=== PATIENT | male | born 1940 | race Caucasian/White ===

== ENCOUNTER 2018-01-16 06:03 | Observation (INO) | payer MEDICARE, OTHER ==
[2018-01-16] MEDS ORDERED: NS 0.9% 1000 ML* 1,000 ML IV ONE (06:08)
[2018-01-16 07:28] LABS: ABS Basophils 0.1 10^3/ul (0-0.2); ABS Eosinophils 0.2 10^3/ul (0-0.6); ABS Monocytes 0.4 10^3/ul (0-0.8); ABS Neutrophils 4.2 10^3/ul (1.5-7.7); ABS Nucleated RBC 0 10^3/ul; Eosinophil % 3.6 % (0-6); Hematocrit 41 % (42-52); Hemoglobin 14.8 g/dl (14.0-18.0); Lymphocyte % 17.6 % (25-47); Mean Corpuscular HGB Conc 36 g/dl (31-36); Mean Corpuscular Hemoglobin 32 pg (27-31); Mean Corpuscular Volume 89 fL (80-94); Mean Platelet Volume 9.6 um3 (7.4-10.4); Nucleated Red Blood Cells % 0.3; Platelet Count 134 10^3/ul (150-450); Red Blood Count 4.58 10^6/ul (4.00-5.40); Red Cell Distribution Width 15 % (10.5-15); White Blood Count 5.9 10^3/ul (3.5-10.8)
[2018-01-16 07:31] LABS: INR 0.98 (0.77-1.02)
[2018-01-16 08:02] LABS: EGFR Non-African American 46.2 (>60)
--- NOTE | 2018-01-16 08:18 | RAD ---
HISTORY: weak, dizziness COMPARISONS mildly: August 14, 2014 VIEWS: 1: frontal portable view of the chest at 6:25 AM FINDINGS: LINES AND TUBES: None. CARDIOMEDIASTINAL SILHOUETTE: The cardiac silhouette is mildly enlarged. The cardiomediastinal silhouette is otherwise normal for portable technique. PLEURA: The costophrenic angles are sharp. No pleural abnormalities are noted. LUNG PARENCHYMA: The lungs are clear. ABDOMEN: The upper abdomen is clear. There is no subphrenic gas. BONES AND SOFT TISSUES: The patient is status post median sternotomy. IMPRESSION: MILD CARDIOMEGALY.
[2018-01-16 08:57] LABS: Urine Appearance Clear; Urine Blood Negative (Negative); Urine Color Yellow; Urine Ketones Negative (Negative); Urine Protein Negative (Negative); Urine Specific Gravity 1.016 (1.010-1.030); Urine Urobilinogen Negative (Negative)
[2018-01-16] MEDS ORDERED: Magnesium Sulfate 2 GM IV* 2 GM/50 ML BAG IVPB ONE (10:49)
[2018-01-16] MEDS ORDERED: Acetaminophen TAB* 325 MG PO PRN (11:11)
[2018-01-16] MEDS ORDERED: Ondansetron 40 MG VIAL* 2 MG/ML 20 ML VIAL IV PRN (11:11)
--- NOTE | 2018-01-16 11:21 | RAD ---
HISTORY: WEAKNESS, ataxia, dizziness COMPARISONS: None TECHNIQUE: The following sequences were obtained of the head: Sagittal T1-weighted images, axial T2-weighted images, axial FLAIR images, axial susceptibility weighted images, axial T1-weighted images. Additionally, axial diffusion-weighted images were obtained with calculated apparent diffusion coefficients. FINDINGS: HEMORRHAGE/INFARCT: There is no hemorrhage or acute infarct. MASSES/SHIFT: There is no mass or shift. EXTRA-AXIAL SPACES/MENINGES: There are no extra-axial fluid collections. SULCI AND VENTRICLES: The sulci and ventricles are normal in size and position for the patient's stated age. CEREBRUM: There are no focal parenchymal abnormalities. BRAINSTEM: There are no focal parenchymal abnormalities. CEREBELLUM: There are no focal parenchymal abnormalities. The cerebellar tonsils are normal in size and position. SELLA: The sella is normal. PINEAL: The pineal region is clear. CP ANGLE/TEMPORAL BONES: The labyrinthine structures are grossly normal. VESSELS: Normal flow-voids are noted within the visualized vertebral vasculature. DIFFUSION ABNORMALITIES: There are no diffusion abnormalities. PARANASAL SINUSES/MASTOIDS: There is mucosal thickening of ethmoid air cells and frontal sinuses. ORBITS: The orbits are unremarkable. BONES AND SOFT TISSUE: No bone or soft tissue abnormalities are noted. OTHER: None IMPRESSION: UNREMARKABLE MRI OF THE BRAIN. NO RESTRICTED DIFFUSION TO SUGGEST ACUTE INFARCT.
--- NOTE | 2018-01-16 11:23 | RAD ---
HISTORY: ataxia COMPARISONS: None TECHNIQUE: The following sequences were obtained of the neck after localizing images: Stacked axial 2-D [id number] MR angiography of the neck; 3-D axial [id number] MR angiography of the carotid bifurcations. Multiple 3-D maximum intensity projection reconstructions are submitted for review. FINDINGS: The study is limited by patient motion artifact. AORTA: The aortic arch is not well visualized secondary to technique and motion artifact. There is no obvious ostial or proximal stenosis of the cephalic great vessels. RIGHT VERTEBRAL ARTERY: The right vertebral artery is patent and without stenosis. LEFT VERTEBRAL ARTERY: There is minimal flow-related enhancement of the left vertebral artery. DOMINANCE: The left vertebral artery is dominant. RIGHT COMMON CAROTID ARTERY: The right common carotid artery is patent. RIGHT INTERNAL CAROTID ARTERY: Evaluation is limited by motion artifact. There is no appreciable right internal carotid artery stenosis by NASCET criteria. LEFT COMMON CAROTID ARTERY: The left common carotid artery is patent. LEFT INTERNAL CAROTID ARTERY: Evaluation is limited by motion artifact. There is no appreciable left internal carotid artery stenosis by NASCET criteria. ADDITIONAL FINDINGS: The visualized intracranial circulation is unremarkable. IMPRESSION: 1. LIMITED STUDY. 2. WITHIN THE LIMITATIONS OF THE STUDY, THERE IS NO INTERNAL CAROTID ARTERY STENOSIS BY NASCET CRITERIA. 3. THE FLOW RELATED ENHANCEMENT OF THE RIGHT VERTEBRAL ARTERY IS DIMINUTIVE. THIS MAY BE AN ANATOMIC VARIATION, THOUGH RIGHT VERTEBRAL ARTERY STENOSIS, INCLUDING FROM DISSECTION, IS WITHIN THE DIFFERENTIAL. CPT II Codes: 3100F
--- NOTE | 2018-01-16 12:54 | ED ---
Brigid Courtney Tenzin, scribed for Ted Arenas MD on 01/16/18 at 0733 . Dizziness - HPI Summary HPI Summary: Pt is a 77 years old male presenting to the ED complaining of vertigo "off balance" with diaphoresis at 5:00 this morning. He reported that his symptoms lasted about 10 minutes today. Pt notes that he experienced 2 episodes of similar symptoms two days in a row in the past week where the symptoms lasted 2 to 3 minutes. He said last episode, "it started with elevated BP" and the pt notes that he visited the [facility]. He reports that he experience similar episode 4 days ago also while he was in [place]. The symptoms includes diaphoresis, nausea, headache, and vertigo," feeling off balance" and feeling "sick to his stomach". Pt also notes that he has associated symptoms of back pain and leg pain after walking pass 176 yards. No stress test was done. Pt denies any blurred vision or slurred speech. He didn't take any medication today. Pt reports that he had a quadruple bypass in 2004 and was discharged a year after the surgery. He notes that he didn't take any precautions since his discharge after that surgery in 2004. - History Of Current Complaint Chief Complaint: EDDizziness Stated Complaint: WEAKNESS/DIZZINESS Time Seen by Provider: 01/16/18 07:17 Hx Obtained From: Patient Timing: Hours - 5:00 AM this morning. Character: Dizzy - off balance. Associated Signs And Symptoms: Positive: Nausea, Diaphoresis, Other: - headache , vertigo. DENIES: blurred vision or slurred speech. - Allergies/Home Medications Allergies/Adverse Reactions: Allergies Allergy/AdvReac Type Severity Reaction Status Date / Time No Known Allergies Allergy Verified 06/30/13 01:00 Home Medications: Home Medications amLODIPine TAB* [Norvasc 5 mg TAB*] 5 mg PO DAILY 01/16/18 [History Confirmed ] cloNIDine TAB* [Catapres 0.1 MG TAB*] 0.2 mg PO TID 01/16/18 [History Confirmed 01/16/18] hydrALAZINE TAB* [Apresoline TAB*] 50 mg PO TID 01/16/18 [History Confirmed ] PMH/Surg Hx/FS Hx/Imm Hx Cardiovascular History: Reports: Hx Coronary Artery Disease Denies: Hx Myocardial Infarction Sensory History: Denies: Hx Deafness Opthamlomology History: Denies: Hx Legally Blind Infectious Disease History: No Infectious Disease History: Denies: Traveled Outside the [place] in Last 30 Days - Family History Family History: Pt denies any relevant family history. - Social History Alcohol Use: None Substance Use Type: Reports: None Smoking Status (MU): Never Smoked Tobacco Review of Systems Positive: Skin Diaphoresis Negative: Blurred Vision Positive: Nausea Positive: Other - back pain and leg pain after walking pass 176 yards Neurological: Other - Vertigo. Positive: Headache. Negative: Slurred Speech All Other Systems Reviewed And Are Negative: Yes Physical Exam - Summary Physical Exam Summary: Appearance: The patient is well-nourished in no acute distress and in no acute pain. Skin: The skin is warm and dry and skin color reflects adequate perfusion. HEENT: The head is normocephalic and atraumatic. The pupils are equal and reactive. The conjunctivae are clear and without drainage. Nares are patent and without drainage. Mouth reveals moist mucous membranes and the throat is without erythema and exudate. The external ears are intact. The ear canals are patent and without drainage. The tympanic membranes are intact. Neck: the neck is supple with full range of motion and non-tender. There are no carotid bruits. There is no neck vein distension. Respiratory: Chest is non-tender. Lungs are clear to auscultation and breath sounds are symmetrical and equal. Cardiovascular: Heart is bradycardia. There is no murmur or rub auscultated. There is no peripheral edema and pulses are symmetrical and equal. Abdomen: The abdomen is soft and non-tender. There are normal bowel sounds heard in all four quadrants and there is no organomegaly palpated. Musculoskeletal: There is no back tenderness noted. Extremities are non-tender with full range of motion. There is good capillary refill. There is no peripheral edema or calf tenderness elicited. Neurological: Patient has slight horizontal nystagmus to the right. The patient has symmetrical motor strength in all four extremities. Cranial nerves are grossly intact. Deep tendon reflexes are symmetrical and equal in all four extremities. Psychiatric: The patient has an appropriate affect and does not exhibit any anxiety or depression. Triage Information Reviewed: Yes Vital Signs On Initial Exam: Initial Vitals Pulse Resp BP Pulse Ox 56 16 158/56 94 01/16/18 06:06 01/16/18 06:06 01/16/18 06:06 01/16/18 06:06 Vital Signs Reviewed: Yes Diagnostics - Vital Signs Vital Signs Temp Pulse Resp BP Pulse Ox 01/16/18 06:16 60 19 94 01/16/18 06:07 97.6 F 59 20 158/56 95 01/16/18 06:06 56 16 158/56 94 - Laboratory Lab Results: Lab Results 01/16/18 01/16/18 01/16/18 Range/Units 07:15 07:15 07:15 WBC 5.9 (3.5-10.8) 10^3/ul RBC 4.58 (4.00-5.40) 10^6/ul Hgb 14.8 (14.0-18.0) g/dl Hct 41 L (42-52) % MCV 89 (80-94) fL MCH 32 H (27-31) pg MCHC 36 (31-36) g/dl RDW 15 (10.5-15) % Plt Count 134 L (150-450) 10^3/ul MPV 9.6 (7.4-10.4) um3 Neut % (Auto) 71.0 (38-83) % Lymph % (Auto) 17.6 L (25-47) % [place] % (Auto) 6.6 (0-7) % Eos % (Auto) 3.6 (0-6) % Baso % (Auto) 1.2 (0-2) % Absolute Neuts (auto) 4.2 (1.5-7.7) 10^3/ul Absolute Lymphs (auto) 1.0 (1.0-4.8) 10^3/ul Absolute Monos (auto) 0.4 (0-0.8) 10^3/ul Absolute Eos (auto) 0.2 (0-0.6) 10^3/ul Absolute Basos (auto) 0.1 (0-0.2) 10^3/ul Absolute Nucleated RBC 0 10^3/ul Nucleated RBC % 0.3 INR (Anticoag Therapy) 0.98 (0.77-1.02) Sodium 138 (135-145) mmol/L Potassium 3.8 (3.5-5.0) mmol/L Chloride 104 (101-111) mmol/L Carbon Dioxide 24 (22-32) mmol/L Anion Gap 10 (2-11) mmol/L BUN 25 H (6-24) mg/dL Creatinine 1.48 H (0.67-1.17) mg/dL Est GFR ( Amer) 59.4 (>60) Est GFR (Non-Af Amer) 46.2 (>60) BUN/Creatinine Ratio 16.9 (8-20) Glucose 145 H (70-100) mg/dL Hemoglobin A1c (4.0-5.6) % Lactic Acid (0.5-2.0) mmol/L Calcium 9.4 (8.6-10.3) mg/dL Magnesium 1.7 L (1.9-2.7) mg/dL Total Bilirubin 2.10 H (0.2-1.0) mg/dL AST 29 (13-39) U/L ALT 27 (7-52) U/L Alkaline Phosphatase 46 (34-104) U/L Troponin I 0.00 (<0.04) ng/mL C-Reactive Protein 3.14 (< 5.00) mg/L B-Natriuretic Peptide ( - 100) pg/mL Total Protein 7.0 (6.4-8.9) g/dL Albumin 4.2 (3.2-5.2) g/dL Globulin 2.8 (2-4) g/dL Albumin/Globulin Ratio 1.5 (1-3) TSH 5.36 (0.34-5.60) mcIU/mL Urine Color Urine Appearance Urine pH (5-9) Ur Specific [place] (1.010-1.030) Urine Protein (Negative) Urine Ketones (Negative) Urine Blood (Negative) Urine Nitrate (Negative) Urine Bilirubin (Negative) Urine Urobilinogen (Negative) Ur Leukocyte Esterase (Negative) Urine Glucose (Negative) 01/16/18 01/16/18 01/16/18 Range/Units 07:15 07:15 07:15 WBC (3.5-10.8) 10^3/ul RBC (4.00-5.40) 10^6/ul Hgb (14.0-18.0) g/dl Hct (42-52) % MCV (80-94) fL MCH (27-31) pg MCHC (31-36) g/dl RDW (10.5-15) % Plt Count (150-450) 10^3/ul MPV (7.4-10.4) um3 Neut % (Auto) (38-83) % Lymph % (Auto) (25-47) % [place] % (Auto) (0-7) % Eos % (Auto) (0-6) % Baso % (Auto) (0-2) % Absolute Neuts (auto) (1.5-7.7) 10^3/ul Absolute Lymphs (auto) (1.0-4.8) 10^3/ul Absolute Monos (auto) (0-0.8) 10^3/ul Absolute Eos (auto) (0-0.6) 10^3/ul Absolute Basos (auto) (0-0.2) 10^3/ul Absolute Nucleated RBC 10^3/ul Nucleated RBC % INR (Anticoag Therapy) (0.77-1.02) Sodium (135-145) mmol/L Potassium (3.5-5.0) mmol/L Chloride (101-111) mmol/L Carbon Dioxide (22-32) mmol/L Anion Gap (2-11) mmol/L BUN (6-24) mg/dL Creatinine (0.67-1.17) mg/dL Est GFR ( Amer) (>60) Est GFR (Non-Af Amer) (>60) BUN/Creatinine Ratio (8-20) Glucose (70-100) mg/dL Hemoglobin A1c 5.1 (4.0-5.6) % Lactic Acid 0.9 (0.5-2.0) mmol/L Calcium (8.6-10.3) mg/dL Magnesium (1.9-2.7) mg/dL Total Bilirubin (0.2-1.0) mg/dL AST (13-39) U/L ALT (7-52) U/L Alkaline Phosphatase (34-104) U/L Troponin I (<0.04) ng/mL C-Reactive Protein (< 5.00) mg/L B-Natriuretic Peptide 76 ( - 100) pg/mL Total Protein (6.4-8.9) g/dL Albumin (3.2-5.2) g/dL Globulin (2-4) g/dL Albumin/Globulin Ratio (1-3) TSH (0.34-5.60) mcIU/mL Urine Color Urine Appearance Urine pH (5-9) Ur Specific [place] (1.010-1.030) Urine Protein (Negative) Urine Ketones (Negative) Urine Blood (Negative) Urine Nitrate (Negative) Urine Bilirubin (Negative) Urine Urobilinogen (Negative) Ur Leukocyte Esterase (Negative) Urine Glucose (Negative) 01/16/18 Range/Units 08:10 WBC (3.5-10.8) 10^3/ul RBC (4.00-5.40) 10^6/ul Hgb (14.0-18.0) g/dl Hct (42-52) % MCV (80-94) fL MCH (27-31) pg MCHC (31-36) g/dl RDW (10.5-15) % Plt Count (150-450) 10^3/ul MPV (7.4-10.4) um3 Neut % (Auto) (38-83) % Lymph % (Auto) (25-47) % [place] % (Auto) (0-7) % Eos % (Auto) (0-6) % Baso % (Auto) (0-2) % Absolute Neuts (auto) (1.5-7.7) 10^3/ul Absolute Lymphs (auto) (1.0-4.8) 10^3/ul Absolute Monos (auto) (0-0.8) 10^3/ul Absolute Eos (auto) (0-0.6) 10^3/ul Absolute Basos (auto) (0-0.2) 10^3/ul Absolute Nucleated RBC 10^3/ul Nucleated RBC % INR (Anticoag Therapy) (0.77-1.02) Sodium (135-145) mmol/L Potassium (3.5-5.0) mmol/L Chloride (101-111) mmol/L Carbon Dioxide (22-32) mmol/L Anion Gap (2-11) mmol/L BUN (6-24) mg/dL Creatinine (0.67-1.17) mg/dL Est GFR ( Amer) (>60) Est GFR (Non-Af Amer) (>60) BUN/Creatinine Ratio (8-20) Glucose (70-100) mg/dL Hemoglobin A1c (4.0-5.6) % Lactic Acid (0.5-2.0) mmol/L Calcium (8.6-10.3) mg/dL Magnesium (1.9-2.7) mg/dL Total Bilirubin (0.2-1.0) mg/dL AST (13-39) U/L ALT (7-52) U/L Alkaline Phosphatase (34-104) U/L Troponin I (<0.04) ng/mL C-Reactive Protein (< 5.00) mg/L B-Natriuretic Peptide ( - 100) pg/mL Total Protein (6.4-8.9) g/dL Albumin (3.2-5.2) g/dL Globulin (2-4) g/dL Albumin/Globulin Ratio (1-3) TSH (0.34-5.60) mcIU/mL Urine Color Yellow Urine Appearance Clear Urine pH 5.0 (5-9) Ur Specific [place] 1.016 (1.010-1.030) Urine Protein Negative (Negative) Urine Ketones Negative (Negative) Urine Blood Negative (Negative) Urine Nitrate Negative (Negative) Urine Bilirubin Negative (Negative) Urine Urobilinogen Negative (Negative) Ur Leukocyte Esterase Negative (Negative) Urine Glucose Negative (Negative) Result Diagrams: 01/16/18 07:15 01/16/18 07:15 Lab Statement: Any lab studies that have been ordered have been reviewed, and results considered in the medical decision making process. - Radiology CHEST X RAY Radiology Interpretation Completed By: Radiologist - Impression: MILD CARDIOMEGALY. Dr. Arenas reviewed the report. - EKG 6:12 Cardiac Rate: Bradycardia - 55BPM EKG Interpretation: 1st degree heart block. Dizzy Course/Dx - Course Course Of Treatment: Mr. Tello presents to the emergency department after a 10 minute episode of being off balance, diaphoretic and nauseated. He has had 3 episodes in the last 5 days. First episode was and he was admitted to our hospital in [facility] with a concern for hypertension. He received labs for rule out KS and a CTA of his chest which was negative. His blood pressure was slightly high on admission and according to the patient he was started on several medications that were meant to be temporary. During the 10 minute episode this morning he took his pressure and it was normal around 130s over 80s. I have significant concern that this could involve a posterior event either from partial dissection or recurrent TIA's. Dr. Toribio was contacted and agreed that he needs a workup and admission to the hospital. Dr. Lara was contacted and agrees to the admission he is pending MRI/MRA while he is here in the emergency department to try to hurry things up. He remains in stable condition. - Diagnoses Provider Diagnoses: TIA (transient ischemic attack) - Critical Care Time Critical Care Time: 30-74 min Discharge - Sign-Out/Discharge Documenting (check all that apply): Discharge/Admit/Transfer - Admit - Discharge Plan Condition: Fair Disposition: ADMITTED TO [facility] - Billing Disposition and Condition Condition: FAIR Disposition: Admitted to [facility] The documentation as recorded by the Brigid lujan Tenzin accurately reflects the service I personally performed and the decisions made by me, Ted Arenas MD.
[2018-01-16] MEDS ORDERED: cloNIDine TAB* 0.1 MG PO SCH (14:00)
[2018-01-16] MEDS: cloNIDine TAB* 0.1 MG PO SCH ×2 (14:17→21:04)
[2018-01-16] MEDS: hydrALAZINE TAB* 25 MG PO SCH ×2 (14:17→21:04)
[2018-01-16] MEDS: Heparin VIAL(*) 5000 UNITS/ML VIAL (FIVE THOUSAND) SUBCUT SCH ×2 (14:18→21:05)
--- NOTE | 2018-01-16 16:22 | ECHO ---
Patient: JEFFY ABERNATHY [facility] Rec#: [id number] : 1940 Date: 01/16/2018 Age: 77y Height: 177.8 cm / 70.0 in Weight: 89.36 kg / 196.9 lbs Sex: M BSA: 2.07 Room#: 433 Admit Date#: 01/16/2018 Type: Inpatient Referring: Jeffy Roger Reading: Marko Sesay MD Arch Support Maker: Polina Watson RDCS CC: Sarah Sosa MD Transthoracic Echocardiogram Indication: TIA BP: 158/56 HR: 56 Rhythm: Bradycardia Findings History: Vertigo,s/p CABGx4 2004, HTN. Technical Comments: The study quality is good. Completed at 1550. Left Ventricle: The left ventricular chamber size is normal. Global left ventricular wall motion and contractility are within normal limits. There is normal left ventricular systolic function. The estimated ejection fraction is 55-60%. Normal left ventricular diastolic filling is observed. Left Atrium: The left atrium is mildly dilated. Right Ventricle: The right ventricular cavity size is normal. The right ventricular global systolic function is normal. Right Atrium: The right atrium is mildly dilated. There is no patent foramen ovale visualized. There is no evidence of patent foramen ovale shunting. A patent foramen ovale is not demonstrated with color Doppler and agitated contrast. Aortic Valve: The aortic valve is trileaflet. There is no evidence of aortic valve thickening. There is trace to mild aortic regurgitation. There is no evidence of aortic stenosis. Mitral Valve: The mitral valve leaflets are mildly thickened. There is mild to moderate mitral regurgitation. There is no evidence of mitral stenosis. Tricuspid Valve: The tricuspid valve leaflets are normal. There is trace to mild tricuspid regurgitation. There is evidence of moderate pulmonary hypertension. There is no tricuspid stenosis. Pulmonic Valve: The pulmonic valve appears normal. There is no evidence of pulmonic regurgitation. There is no pulmonic stenosis. Pericardium: A pericardial fat pad is visualized. Aorta: The ascending aorta is not well visualized. There is no dilatation of the aortic arch. There is no dilation of the aortic root. Pulmonary Artery: The main pulmonary artery appears normal. Venous: The venous system is not well visualized. Conclusions Global left ventricular wall motion and contractility are within normal limits. There is normal left ventricular systolic function. The estimated ejection fraction is 55-60%. There is no patent foramen ovale visualized. A patent foramen ovale is not demonstrated with color Doppler and agitated contrast. There is trace to mild aortic regurgitation. There is mild to moderate mitral regurgitation. There is trace to mild tricuspid regurgitation. There is evidence of moderate pulmonary hypertension. The ascending aorta is not well visualized. Measurements Name Value Normal Range RVIDd (AP) 2D 2.9 cm (0.9 - 2.6) RVDdMajor (2D) 3.5 cm (2.2 - 4.4) RAd ISD 4CH 5.4 cm (3.4 - 4.9) RA (A4C)W 3.9 cm (2.9 - 4.6) IVSd (2D) 0.8 cm (0.6 - 1) LVPWd (2D) 1 cm (0.6 - 1) LVIDd (2D) 4.7 cm (3.6 - 5.4) LVIDs (2D) 3.2 cm - LV FS (2D) 32 % (25 - 45) Aortic Annulus 2.2 cm (1.4 - 2.6) Ao root diameter (2D) 3.4 cm (2.1 - 3.5) Aortic arch 2.2 cm (1.8 - 3.4) Descending Ao 0.5 cm - LA dimension (AP) 2D 4.3 cm (2.3 - 3.8) LAd ISD 4CH 6 cm (2.9 - 5.3) LA ISD 4CH W 4.4 cm (2.5 - 4.5) Name Value Normal Range LA ESV SP 4CH (A/L) 59 ml - LA ESV SP 2CH (A/L) 79 ml - LA ESV BP (A/L) 69 ml - LA ESV BP (A/L) index 33.23 ml/m2 - LA ESV SP 4CH (MOD) 55 ml - LA ESV SP 2CH (MOD) 73 ml - Name Value Normal Range MV E-wave Vmax 1.2 m/sec - MV deceleration time 258 msec - MV A-wave Vmax 0.9 m/sec - MV E:A ratio 1.3 ratio - LV septal e' Vmax 0.07 m/sec - LV lateral e' Vmax 0.06 m/sec - LV E:e' septal ratio 17.14 ratio - LV E:e' lateral ratio 20 ratio - Name Value Normal Range AV Vmax 1.7 m/sec - AV VTI 39.89 cm - AV peak gradient 11.16 mmHg - AV mean gradient 5.31 mmHg - LVOT Vmax 1.1 m/sec - LVOT VTI 27.4 cm - LVOT peak gradient 4.85 mmHg - LVOT mean gradient 2 mmHg - AR PHT 580 msec - AR peak gradient 29 mmHg - Name Value Normal Range MR Vmax 5.3 m/sec - MR VTI 205.7 cm - Name Value Normal Range TR Vmax 3 m/sec - TR peak gradient 36 mmHg - RAP 8 mmHg - RVSP 44 mmHg - Name Value Normal Range PV Vmax 0.8 m/sec - PV peak gradient 2.35 mmHg -
--- NOTE | 2018-01-16 16:51 | HP ---
CC: Dr. Sarah Sosa; Dr. Ml Flores * ADMISSION HISTORY AND PHYSICAL: DATE OF ADMISSION: 01/16/18 PRIMARY CARE PROVIDER: Dr. Sarah Sosa. MY ATTENDING WHILE IN THE HOSPITAL: Dr. Claudia Castrejon.* (DICTATED BY GRECIA XIAO) CONSULTING NEUROLOGIST: Dr. Ml Flores. CHIEF COMPLAINT: Dizziness x3. HISTORY OF PRESENT ILLNESS: Mr. Tello is a 77-year-old male with a past medical history significant for coronary artery disease, peripheral arterial disease, amaurosis fugax, recently diagnosed hypertension, who initially presented to the urgent care in [place], [place], with a sudden onset of dizziness and what was then described as chest pain, but he states it was just a muscle spasm in his PEC, which lasted about 40 seconds. The patient's blood pressure was slightly elevated at urgent care, but was significantly elevated with systolic up to 220 in the emergency department at [place], [place]. He was admitted to the hospital; started on clonidine, hydralazine, and amlodipine. The patient did not have any issues with dizziness during the hospitalization. The patient had a CTA of his chest; negative troponins and essentially negative cardiac workup. The patient was discharged from the hospital after 3 days with no arrhythmias noted on telemetry monitoring. The patient then between when he was discharged from [facility] and got back to [place] , he had another episode of relatively sudden onset of dizziness, which he describes as disequilibrium. While he was in the hospital at [facility], they had issues with his diastolic blood pressures dropping too low due to overtreatment but with persistently elevated systolic blood pressures. The patient states it is worse when he is standing, describes it as a disequilibrium like he is going to fall, he is not feeling like he is going to fall in one particular direction. Again, he denies presyncope. No palpitations , current chest pain, or shortness of breath. The patient has nausea and vomiting associated with these episodes. The patient has no other recent illnesses. The patient had no recent changes in medications except for the addition of the 3 antihypertensive medications. The patient denies dai vertigo, changes in his vision. The patient has a history of amaurosis fugax from 2004, which lasted approximately 10 to 15 seconds. The patient has no numbness, tingling, weakness, or other changes in his vision. The patient has had no word-finding difficulty. The patient was previously started on statin therapy and did not tolerate it due to general poor feeling and not interested in restarting on statin therapy. The patient has not had issues with high blood pressure in the past. Due to concern for transient ischemic attack versus hypotension causing the patient's dizziness, we were asked to evaluate for admission. The patient states that he has claudication in his leg with approximately 500 feet of walking; this is relatively predictable and this has not recently progressed. The patient has never had an evaluation for peripheral arterial disease. PAST MEDICAL HISTORY: Coronary artery disease, status post CABG x4 in 2004; TRD , amaurosis fugax, osteoarthritis, newly diagnosed hypertension, peripheral arterial disease. PAST SURGICAL HISTORY: CABG in 2004. MEDICATIONS: 1. Amlodipine 5 mg p.o. daily. 2. Clonidine 0.2 mg p.o. t.i.d. 3. Hydralazine 50 mg p.o. t.i.d. 4. Omeprazole 20 mg p.o. daily. 5. Aspirin 81 mg p.o. daily. ALLERGIES: No known drug allergies. FAMILY HISTORY: The patient's mother of lung cancer. The patient's father of prostate cancer. The patient has a brother with diabetes and arthritis. The patient has 2 children, who are healthy. SOCIAL HISTORY: The patient has a [id number] history of smoking. The patient still occasionally smokes cigars. The patient drinks approximately 12 beers a week. The patient denies illicit drug use. 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 The patient is not , but has a long-term partner, Polina Mckeon, who he would like to be his health care proxy. The patient has 2 children. REVIEW OF SYSTEMS: A 14-point review of systems was reviewed and is negative except as above. PHYSICAL EXAMINATION GENERAL: The patient is a 77-year-old male who appears stated age and is sitting comfortably in bed, in no acute distress. VITAL SIGNS: At the time of evaluation, temperature is 97.6, pulse rate 59, respiratory rate 20, oxygen saturation 95% on room air, blood pressure 156/56. HEENT: Head normocephalic, atraumatic. Sclerae anicteric. No conjunctival injection. Nasal mucosa moist. Oral mucosa moist. No pharyngeal erythema, discharge, or exudate. NECK: Supple, nontender. No lymphadenopathy. No carotid bruits auscultated. No JVD. RESPIRATORY: Clear to auscultation bilaterally. No wheezes, rales, or rhonchi. Good air exchange bilaterally. CARDIAC: Regular rate and rhythm. No clicks, murmurs, gallops, or rubs. Pulses are 1+ in bilateral dorsalis pedis and posterior tibialis areas, 2+ in bilateral radial areas. No bilateral calf tenderness noted. Varicose veins. ABDOMEN: Soft, nontender, nondistended. Bowel sounds present and normoactive in all 4 quadrants. No hepatosplenomegaly. No abdominal bruits auscultated. No hepatojugular reflux. GENITOURINARY: No suprapubic or CVA tenderness. NEURO: Cranial nerves II through XII intact. No nystagmus. Strength and sensation to light touch preserved in the upper and lower extremities distally and proximally. Normal gait, able to heel and toe walk. Negative Romberg. No pronator drift. PSYCHIATRIC: Pleasant and cooperative. SKIN: Clean, dry, and intact. No rash. LABORATORY DATA: White blood cell count 5.9, hemoglobin 14.8, platelet count 134. Sodium 138, potassium 4.8, chloride 104, carbon dioxide 24, anion gap 10, BUN 25, creatinine 1.48, glucose 145, lactic acid 1.9. Magnesium 1.7. Total bilirubin 1.2, AST 29, ALT 17, alkaline phosphatase 46. Troponin I of 0.00. CRP 3.14, BNP 76, total protein 7.0, albumin 4.2, globulin 2.8. TSH 5.36. Urine benign. DIAGNOSTIC STUDIES: Chest x-ray read as mild cardiomegaly. Electrocardiogram read as normal sinus rhythm, possible left atrial enlargement. No other hypertrophy enlargement. Prolonged NC interval. No ST segment abnormalities. QTc of 442, rate at 55. MRI brain read as unremarkable MRI of the brain, no restricted diffusion such as infarct. Neck MRI read as limited study. Within the limitation of the study, there is no internal carotid stenosis by NASCET criteria, the flow- related enhancement of the right vertebral artery is diminutive, this may be the anatomic variation of the right vertebral artery stenosis including from dissection, incidentally differential. ASSESSMENT AND PLAN/IMPRESSION: Mr. Tello is a 77-year-old male with past medical history significant for coronary artery disease, peripheral arterial disease, amaurosis fugax, and newly diagnosed hypertension, who has had 3 episodes, relatively sudden onset, dizziness with associated nausea and vomiting. No vertiginous symptoms. The patient has been treated for his blood pressure and has persistent symptoms. The patient will be admitted to the hospital for evaluation for transient ischemic attack as well as for evaluation of the efficacy of his blood pressure treatment and telemetry monitoring. 1. Dizziness. The patient's dizziness is of unknown cause. The differential includes posterior circulation transient ischemic attack. The MRI of the brain was negative. The patient does have possible vertebral artery stenosis, but this based on previous records appears to be chronic, at least since 2004. The patient had issues with his diastolic blood pressure being low due to overtreatment of his blood pressure while in [place]. The patient has not had orthostatic vital signs, these will be obtained and the patient's blood pressure medications will be adjusted as needed. The patient is having poor reaction to clonidine with dry mouth and due to the patient's chronic kidney disease, the plan will be at this point to taper off the clonidine after closely watching the patient's blood pressure and introduce lisinopril as tolerated due to the patient's chronic kidney disease. The patient should follow up with his primary care provider, Dr. Sarah Sosa, for long-term management of his hypertension and addition or removal of medications as needed. Neurological consult has been obtained and the patient will be seen by Dr. Ml Flores, possible addition of clopidogrel for secondary prevention of transient ischemic attack will be considered based on her evaluation. 3. Coronary artery disease, status post coronary artery bypass graft. Continue aspirin, check lipid profile and hemoglobin A1c. The patient is not having chest pain. The patient had a troponin that is negative. The patient has no ST segment changes on his EKG. Continue aspirin and blood pressure control. 4. Peripheral arterial disease. The patient has claudication predictably with approximately 500 feet of walking. The patient is not interested in statin therapy. Continue the patient on aspirin therapy. Anti-claudication therapy should be continued after further evaluation of the patient's peripheral arterial disease, which can be done as an outpatient. The patient is still very active; however, the patient does have reduced pulses in his feet. 5. Osteoarthritis. The patient will have Tylenol available for pain. 6. Gastroesophageal reflux disease. Continue omeprazole. 7. DVT prophylaxis: The patient will be started on heparin subcu. 8. Code status: The patient would like to be a full code. The patient would like his surrogate decision maker to be Polina Mckeon, his partner as above. 9. FEN: The patient will have a heart-healthy diet without caffeine. The patient will not get his fluids at this time due to normotension. The patient received 1 L of fluids in the emergency department. 10. Disposition: The patient will be admitted on observation for evaluation of transient ischemic attack. TIME SPENT: Approximately 60 minutes were spent on this admission, 30 of which were spent [id number] with the patient obtaining history and physical and discussing treatment plan. This plan was discussed with my attending, Dr. Claudia Castrejon, and she is in agreement. GRECIA XIAO [id number]/CPS #: [id number] BRIONNA
[2018-01-16] MEDS ORDERED: Omeprazole CAP* 20 MG PO ONE (20:08)
[2018-01-16] MEDS ORDERED: Aspirin EC TAB* 81 MG TAB.EC PO ONE (20:08)
--- NOTE | 2018-01-16 21:30 | CONS ---
CC: Dr. Sosa * NEUROLOGY CONSULTATION: DATE OF CONSULT: 01/16/18 REQUESTING PROVIDERS: Dr. Stevan Arenas and Jeffy Hough. REASON FOR CONSULT: Dizziness, trouble walking. HISTORY OF PRESENT ILLNESS: Jeffy Tello is a 77-year-old man with a history of coronary artery disease, status post CABG in 2004, who presented to the emergency department this morning after he had an episode lasting less than 5 minutes of sudden onset diaphoresis, nausea, dizziness, but not vertigo, associated with gait imbalance. He had a small amount of emesis with this, this morning and the dizziness was stronger than the previous 2 episodes that he has experienced recently and so he contacted EMS to bring him here for further evaluation. He has had 2 other episodes like the current episode today with the first occurring on 01/12 and the second occurring on 01/15. On 01/12, he was in [place], [place] visiting his son and was in a motel room doing pushups first thing in the morning, which is his normal routine, when he had some muscular chest pain in his left pectoral region. This was not unusual for him, but after that pain had subsided, he then experienced the sudden onset of the same symptoms that he experienced this morning which include diaphoresis , nausea, and nonspecific dizziness. He estimates that this episode lasted less than 2 minutes, but because he had not experienced symptoms like this in the past, he went to a local urgent care center and was then transferred to a local ER for further evaluation where he was admitted. His blood pressure was very elevated and he was admitted for "asymptomatic hypertensive urgency" according to the records received from the hospital in [place]. He was admitted from 01/12 and discharged on the . When he arrived in [place], he took no antihypertensive medications and upon his discharge, he was discharged on 3 medications including amlodipine 5 mg daily, clonidine 0.2 mg 3 times daily, and hydralazine 50 mg 3 times daily. He makes it clear that the internal medicine physician who treated him in the hospital indicated that this was not a regimen that he would remain on, but was simply to get him home in order to see his usual doctors. Since he has been started on these medications , he has had intermittent dizziness, which is different from the discrete episodes he has experienced over the last several days, and also a dry mouth and decreased appetite. He was not exercising at the time of onset of his symptoms today, but they did occur in the morning he estimates around 7:30 a.m. On 01/15, in the morning, he again had the sudden onset of these same symptoms which again were very brief in nature. He was not exerting himself at the time that these symptoms came on. He thinks he may have been somewhat stressed because he was concerned about getting the rental car back prior to their scheduled flight home as well as he worried about getting around in the airport because he was not feeling up to walking the long distances in the [place] and [place] airports. With the episode this morning, he admits to being stressed secondary to not being able to locate his blood pressure cuff when he started to not feel well, and he then became concerned that someone had stolen it on the airplane. He later located it in his significant other's purse and his blood pressure was normal in the 130s over 70s or 80s. This morning, the dizziness was stronger than anything he had experienced previously and though he was able to ambulate, he had to hold on to the mascorro and other objects in order to steady himself. I should note that he feels these symptoms are caused by his new antihypertensive medications, though he does admit that his first episode occurred prior to starting any of these medications. He is also concerned that some of these symptoms could be due to his diastolic blood pressure going too low. I was contacted by Dr. Arenas and given the recurrent gait imbalance, we were concerned about the possibility of a posterior circulation ischemic event and so I recommended MRI of the brain as well as MRA of the head and neck to evaluate for any significant stenosis, occlusion, or evidence of ischemic event in the posterior circulation. I should note that he was transferred from this hospital in 2004 for his bypass surgery and a note from Dr. Sosa at that time states that he apparently had some vertebral artery narrowing noted back then as well as a right carotid bruit. Neurology consultation was requested secondary to these recurrent symptoms. PAST MEDICAL HISTORY: 1. Coronary artery disease, status post bypass in 2004. 2. GERD. 3. Varicose vein surgery. 4. Lower extremity claudication. HOME MEDICATIONS: 1. Aspirin 81 mg. 2. Prevacid. 4. Hydralazine 50 mg 3 times daily. 5. Amlodipine 5 mg daily. 6. Clonidine 0.2 mg 3 times daily. ALLERGIES: No known drug allergies. FAMILY HISTORY: Noncontributory at this time. SOCIAL HISTORY: He reports drinking on average 2 beers daily, sometimes less, sometimes more, but denies ever becoming intoxicated with his alcohol intake. He smokes a cigar daily, but denies inhaling and has not smoked a cigarette in many years. He denies any illicit drug use. He lives alone, but his significant other, Heaven, stays with him occasionally and is his healthcare proxy and power of divorce attorney. 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 REVIEW OF SYSTEMS: As per the HPI, otherwise negative. PHYSICAL EXAM: Vital Signs: Temperature 97.5, blood pressure 147/59, heart rate 52, oxygen saturation 100% on room air. On general examination, he is a pleasant man in no acute distress. He was sitting at the edge of his bed eating lunch when I first entered the room. His heart is in regular rhythm though bradycardic with no obvious murmurs, rubs, or gallops. There are bilateral carotid bruits, more noticeable on the right. Lungs were clear to auscultation bilaterally. He has multiple varicose veins in his calves bilaterally, but no lower extremity edema. No skin rashes. On neurologic examination, he is fully awake, alert, and oriented. He has occasional word finding difficulties, which he reports is his baseline as he has gotten older, but otherwise no significant aphasia or dysarthria. Pupils were equal, round, and reactive from 4 to 2 mm bilaterally. Versions were full without nystagmus though he initially had some end-gaze nystagmus on the right which quickly fatigued. I also note that he reported a ghost image on primary gaze which did not change in any direction of gaze and was still present when his right eye was occluded, most consistent with an ocular source of double vision. David were full to confrontation. Facial sensation and musculature is full and symmetric. Hearing is intact to finger rub. The palate elevates symmetrically and the tongue is midline. On motor examination, he has normal bulk and tone in the upper and lower extremities. Strength is full proximally and distally with no pronator drift. Sensation is intact to light touch and temperature in the upper and lower extremities. Reflexes were 3+ in the upper extremities and knees, 2+ at the ankles with downgoing toes. [id number] and axlx-ph-aola were intact without ataxia. His gait is stable with a slightly wide base, but he reports that is his baseline. He is able to rise on to his heels and toes. DIAGNOSTIC STUDIES/LAB DATA: CBC is overall unremarkable with a slightly low hematocrit of 41, MCH of 32, platelet count of 134. His INR is normal. His chemistry panel shows a creatinine of 1.48, BUN of 25. His outside hospital records also show an elevated creatinine to more than 1.[address] underwent a [address] angiogram of his chest in [place]. His glucose was 145, magnesium 1.7, bilirubin 2.1, TSH 5.36. Liver functions normal. His hemoglobin A1c is 5.1. BNP 76. Urinalysis is negative for infection. As mentioned, he had a CTA of his chest in [place] which showed no evidence for pulmonary embolism nor dissection. Here, he has undergone MRI scan of the brain without contrast, which showed no evidence for an acute or subacute infarct and showed some very mild evidence of small vessel disease with a few foci of FLAIR hyperintensity in the white matter. His MRA of the neck was personally reviewed and was a limited study secondary to motion artifact, but there was no clear internal carotid artery stenosis. There was diminutive flow in the right vertebral artery which may be a normal variation though vertebral artery stenosis is within the differential as well. There was no obvious occlusion noted. It does not appear that an MRA of the head was done. An echocardiogram is pending. IMPRESSION AND PLAN: Jeffy Tello is a 77-year-old man with a history of cardiovascular disease, questionable claudication in his lower extremities, who presents with 3 recurrent episodes of diaphoresis, nausea, dizziness this morning associated with a small amount of emesis. With the first episode that occurred on the , he was noted to have very elevated blood pressure and reports no significant prior history of hypertension nor being on any cardiac medications despite his history of CABG in the past. It was thought that he may have longstanding hypertension and he was started on 3 agents. He has gone on to have 2 similar episodes without obvious extreme elevations in his blood pressure and also without a clear hypotension associated. I discussed with the patient that while it is possible that some of his recent symptoms such as more persistent dizziness and dry mouth could be related to his new medications, these discrete episodes are less likely since the first one occurred prior to him starting any of these medications. One possibility that is considered is posterior circulation transient ischemic attacks though he has now had 3 events with the same symptoms. Though he may have some vertebral artery stenosis in the posterior circulation, this appears to be a longstanding issue and it is not clear why he would suddenly become symptomatic from this. I do note that this imaging study was somewhat suboptimal secondary to motion artifact, however. He also notes that with the last 2 episodes, he may have been stressed and certainly with the last episode does admit to feeling a significant amount of stress with it and panic attack could be within the differential though the duration of the episode is a bit short for panic attack. I would also question whether there could be any arrhythmia that could be contributing and he is being monitored on telemetry. I note that his heart rate here has been in the 50s and at times into the high 40s. Finally, given the stereotyped nature of the episodes as he describes them as well the brief nature, a focal seizure would be within the differential and so I will obtain an EEG. At this time, he will remain on his aspirin 81 mg, and I defer any further adjustment of his blood pressure medications to the hospitalist service. Thank you for this consultation [id number]/[facility] #: [id number] BRIONNA
[2018-01-17 05:09] LABS: ABS Basophils 0 10^3/ul (0-0.2); ABS Eosinophils 0.2 10^3/ul (0-0.6); ABS Monocytes 0.4 10^3/ul (0-0.8); ABS Neutrophils 3.1 10^3/ul (1.5-7.7); ABS Nucleated RBC 0 10^3/ul; Eosinophil % 4.2 % (0-6); Hematocrit 42 % (42-52); Hemoglobin 14.9 g/dl (14.0-18.0); Lymphocyte % 35.2 % (25-47); Mean Corpuscular HGB Conc 35 g/dl (31-36); Mean Corpuscular Hemoglobin 32 pg (27-31); Mean Corpuscular Volume 90 fL (80-94); Nucleated Red Blood Cells % 0; Platelet Count 139 10^3/ul (150-450); Red Blood Count 4.67 10^6/ul (4.00-5.40); Red Cell Distribution Width 15 % (10.5-15); White Blood Count 5.8 10^3/ul (3.5-10.8)
[2018-01-17 05:24] LABS: EGFR Non-African American 51.4 (>60)
[2018-01-17] MEDS: Heparin VIAL(*) 5000 UNITS/ML VIAL (FIVE THOUSAND) SUBCUT SCH ×2 (05:30→15:12)
[2018-01-17] MEDS: cloNIDine TAB* 0.1 MG PO SCH ×3 (08:39→15:12)
[2018-01-17] MEDS ORDERED: Omeprazole CAP* 20 MG PO SCH (09:00)
[2018-01-17] MEDS ORDERED: Aspirin 81 mg CHEW TAB* 81 MG TAB.CHEW PO SCH (09:00)
[2018-01-17] MEDS ORDERED: amLODIPine TAB* 5 MG PO SCH (09:00)
--- NOTE | 2018-01-17 10:54 | PN ---
Hospitalist Progress Note Date of Service: 01/17/18 Patient refused to be examined by me. States "I am going home today" and "I want a second opinion" when the medication taper and plan of care were explained to the patient. When I asked from whom he wants an opinion, patient stated "a doctor". I excused myself from the room and notified Dr. Tavarez.
[2018-01-17] MEDS: hydrALAZINE TAB* 25 MG PO SCH ×2 (11:32→15:12)
[2018-01-17 15:24] VITALS: BP 146/45
--- NOTE | 2018-01-18 05:01 | EEG ---
CC: Dr. Sosa * ELECTROENCEPHALOGRAPHY: DATE OF STUDY: 01/16/18 ORDERING PHYSICIAN: Dr. Florse. PCP: Dr. Sosa. CLINICAL PROBLEM: This is a 77-year-old man with a history of coronary artery disease, who presented to the emergency department with a sudden brief episode of diaphoresis, nausea, nonspecific dizziness associated with gait imbalance and a small amount of emesis. He has had 2 previous episodes with the same symptoms lasting a couple of minutes per episode with the first one being on . EEG is requested to evaluate for epileptiform abnormalities. MEDICATIONS: 1. Ondansetron. 2. Acetaminophen. 3. Omeprazole. 4. Aspirin 81 mg. 5. Amlodipine. 6. Heparin. 7. Hydralazine. 8. Clonidine. 9. Magnesium. REPORT: The waking background showed appropriate organization with clearly defined iylonmxr-kl-nolepsbok voltage and frequency gradients. There was a well -defined posterior dominant rhythm of 9 Hz, which was symmetrical and showed normal reactivity. Anteriorly, there was an expected pattern of lower voltage, irregular, mixed faster frequencies. Photic stimulation and hyperventilation were not performed. Attenuation of the occipital rhythm accompanied drowsiness. The sleep background was appropriately organized with well-developed sleep spindles and vertex waves. The sleep transients showed appropriate morphology and were bilaterally synchronous and symmetrical. Throughout the recording, there were no epileptiform discharges, focal features , paroxysmal features, or significant interhemispheric asymmetries. CLINICAL IMPRESSION: This is a normal waking and sleep EEG. There are no epileptiform abnormalities. [id number]/[facility] #: [id number] MTDD
--- NOTE | 2018-01-18 09:10 | PN ---
CC: Dr. Sosa * PROGRESS NOTE: DATE OF FOLLOWUP: 01/17/18 HISTORY: No acute overnight events. The patient has not experienced any further episodes similar to the one which brought him in yesterday. He has remained in sinus bradycardia on telemetry with no significant arrhythmias. He underwent EEG as well as echocardiogram yesterday. The patient reports that he is eager to go home. MEDICATIONS: His MAR was reviewed and pertinent medications include: 1. Aspirin 81 mg daily. 2. Clonidine 0.1 mg 3 times daily. 3. Hydralazine 50 mg 3 times daily. 4. Amlodipine 5 mg daily. PHYSICAL EXAM: Vital Signs: Temperature 98.2, blood pressure 125/40, heart rate 56, oxygen saturation 97% on room air. Last evening at 2354 hours, his blood pressure was 165/57, which was the highest since his admission. The patient was not formally reexamined this morning. On observation, he moved to a seated position in his bed without any difficulty. His speech was clear without dysarthria or aphasia. His face is symmetric. He moved from the bed to the bedside table to get his glasses and look at his discharge paperwork from the previous hospitalization without any focal abnormalities. DIAGNOSTIC STUDIES/LAB DATA: Review of his laboratory data shows that his creatinine is improved to 1.35 today. His echocardiogram showed normal ejection fraction between 55% and 60%. No evidence for a PFO. No significant valvular disease and evidence of moderate pulmonary hypertension was estimated. EEG was performed yesterday and was a normal study. His telemetry reportedly shows sinus bradycardia as well as a first-degree AV block. IMPRESSION: A 77-year-old man with a history of cardiovascular disease, who came in with 3 episodes of nausea, diaphoresis, gait imbalance, and some vomiting yesterday morning, with the first episode occurring on 01/12/18. His evaluation here has been overall benign. I questioned whether these episodes could have anything to do with increased bradycardia in the morning, but he did not have an episode this morning while on telemetry. Structurally, his heart appears normal, his EEG was normal, and there are no significant abnormalities on his neuroimaging. At this point, I would continue his aspirin and he needs continued adjustment of his blood pressure medications as an outpatient. I would not suggest any change to his antiplatelet regimen at this time. Follow up can be with his primary care provider, unless Dr. Sosa feels that an additional neurologic evaluation or opinion is needed as an outpatient. [id number]/CPS #: [id number] [facility] [place] DIVISIONBernice
--- NOTE | 2018-01-19 12:54 | DS ---
CC: Sarah Sosa MD * DISCHARGE SUMMARY: DATE OF ADMISSION: 01/16/18 DATE OF DISCHARGE: 01/17/18 PRIMARY CARE PHYSICIAN: Sarah Sosa MD ATTENDING FOR THIS ADMISSION AND DISCHARGE: Roslyn Burleson MD * (DICTATED BY SUE BEYER NP) HOSPITAL COURSE: This is 77-year-old male patient who reported to the emergency department with description of weakness, episodes of nausea, diaphoresis, gait imbalance and some vomiting in the morning. The patient initially said this happened 3 days prior and then he came to the emergency department to evaluate it when he continued to feel worse. Four days prior to his admission here, the patient was admitted in [facility]. When he was traveling, he was noted to be in hypertensive urgency at that time. He was started on 3 medications and sent home. The patient did not follow up immediately and apparently was having this dizziness what was likely caused by polypharmacy and a large amount of antihypertensives that were all started concurrently. The patient was admitted for observation. He had an echocardiogram, which showed normal ejection fraction and no PFO. He was seen by Neurology and underwent an EEG, which was negative for seizure. He was remaining in sinus bradycardia on telemetry and also had a normal blood pressure. On the day of discharge, actually blood pressure was 125/40. I had a conversation with the patient regarding his findings and explained to the patient that we would be decreasing some of his blood pressure medications given his presentation and now being normotensive. The patient was unhappy with this plan of care and requested to see Dr. Burleson personally for a second opinion. The patient was seen by Dr. Burleson, who also explained that the patient should be slowly tapered off his medications as was stated earlier. He was also seen by Dr. Flores, who ruled him out for TIA and any other acute pathology. The patient was not placed on any antiplatelets at that time. His evaluation was benign and likely all medication related. DISCHARGE DIAGNOSES: 1. Hypertension with polypharmacy. 2. Dizziness, nausea and vomiting likely related to #1. 3. History of coronary artery disease, stable. 4. History of peripheral arterial disease, stable. 5. History of osteoarthritis. 6. History of gastroesophageal reflux disease. DISCHARGE MEDICATIONS: Include: 1. Aspirin 81 mg daily. 2. Clonidine decreased to 0.1 mg 3 times a day. 3. Hydralazine 50 mg 3 times daily. 4. Amlodipine 5 mg daily. LABORATORY DATA: WBC is 5.8, RBC is 4.67, hemoglobin 14.9, hematocrit 42, platelets 139,000. Sodium 136, potassium 3.9, chloride 105, CO2 of 22, BUN 21, creatinine 1.35, GFR 51.4, glucose 109, A1c 5.1, calcium 9.2, triglycerides 186 , cholesterol 158, LDL 92, HDL 28.8, TSH is 5.36. REVIEW OF SYSTEMS: Negative except as noted in the HPI. PHYSICAL EXAMINATION: The patient is alert. Vital Signs: Blood pressure 146/ 45, respiratory rate 20, O2 saturation 96% on room air, temperature 98.2, heart rate of 61. HEENT: The patient is atraumatic, normocephalic. PERRLA with nonicteric sclerae. Cardiovascular: S1, S2 present. Bradycardic on telemetry. No ectopy noted. Lungs are clear bilaterally to auscultation. Abdomen is benign. Musculoskeletal: Steady gait. Neurologic: Grossly intact. Psychiatric: With no acute findings. DISCHARGE DISPOSITION: The patient is discharged in stable condition. He was instructed to follow up with Dr. Sarah Sosa in the next 1 to 2 weeks. He also was given a referral for the [facility] in the event he was unable to see his primary care provider. We made an appointment for him on the at 10:30 a.m. to have his blood pressure rechecked and have his medications evaluated. The patient was discharged in stable condition. All questions were answered. The patient stated his understanding of his plan of care and discharge followups. SUE BEYER, KALPESH [id number]/CPS #: [id number] BR[facility]
== END 2018-01-17 15:29 | disposition home or self-care (01) ==
LOC: ED 06:03 → MEDTELE 11:13
PROVIDERS: ADMIT Internal Medicine; ATTEND Internal Medicine
DX: R42 Dizziness and giddiness (principal); R11.0 Nausea; R51 Headache; M54.9 Dorsalgia, unspecified; I25.10 Atherosclerotic heart disease of native coronary artery without angina pectoris; G45.3 Amaurosis fugax; I10 Essential (primary) hypertension; Z95.5 Presence of coronary angioplasty implant and graft; I73.9 Peripheral vascular disease, unspecified; Z79.82 Long term (current) use of aspirin; K21.9 Gastro-esophageal reflux disease without esophagitis; M19.90 Unspecified osteoarthritis, unspecified site
CPT/HCPCS: 36415; 70547; 70551; 71045; 80048; 80053; 80061; 81003; 83036; 83605; 83735; 83880; 84443; 84484; 85025; 85610; 86140; 93005; 93306; 95819; 96365; 96366; 99283; A9270-GY; G0378; J1644; J3475